=== PATIENT | female | born 1975 | race African-American/Black ===

== ENCOUNTER → 2018-02-28 11:06 | Outpatient (CLI) | payer OTHER | END | disposition home or self-care (01) | LOC: D.RAD 11:00 | DX: Z02.71 Encounter for disability determination (principal) ==

== ENCOUNTER → 2018-05-31 10:50 | Outpatient (CLI) | payer BC | END | disposition home or self-care (01) | LOC: D.RT 10:50 | DX: R06.02 Shortness of breath (principal); R25.0 Abnormal head movements ==

== ENCOUNTER → 2019-03-02 13:22 | Outpatient (CLI) | payer BC | END | disposition home or self-care (01) | LOC: D.US 13:22 | PROVIDERS: ATTEND Emergency Medicine | DX: M25.562 Pain in left knee (principal) ==